=== PATIENT | female | born 1970 ===

== ENCOUNTER 2022-12-25 05:00 | Day surgery (SDC) | payer OTHER ==
[~2022-12-25] VITALS: Ht 172.7 cm; Wt 71.2 kg
== END 2022-12-25 13:20 | disposition home or self-care (01) ==
LOC: CIR.AMB 05:00
PROVIDERS: ATTEND Obstetrics & Gynecology
DX: N95.0 Postmenopausal bleeding (principal); N84.0 Polyp of corpus uteri; Z20.822 Contact with and (suspected) exposure to COVID-19; I95.9 Hypotension, unspecified; F17.210 Nicotine dependence, cigarettes, uncomplicated